=== PATIENT | female | born 1990 | race Caucasian/White ===

== ENCOUNTER 2016-08-02 16:11 | Outpatient (CLI) | payer OTHER ==
[~2016-08-02 16:11] MED LIST: ACID REDUCER M150 MG PO; IBUPROFEN200 M1 PO; IRON SUPPLEMEN325 MG; OXYCODONE/ACETA1 TA1 PO; PRENATAL1 TAB PO; TYLENOL325 MG PO; VENTOLIN HFA IN
[2016-08-17] MEDS ORDERED: METFORMIN HCL500 MG PO (17:51)
== END 2016-08-02 16:55 | disposition home or self-care (01) ==
LOC: NST SRH 16:11 → OB SRH 16:13 → NST SRH 16:55
PROC: 4A0HXCZ Measurement of Products of Conception, Cardiac Rate, External Approach (ICD-10-PCS; principal; 2016-08-02)
DX: O24.419 Gestational diabetes mellitus in pregnancy, unspecified control (principal); Z3A.37 37 weeks gestation of pregnancy

== ENCOUNTER 2016-08-04 14:57 | Outpatient (CLI) | payer OTHER ==
[2016-08-17] MEDS ORDERED: METFORMIN HCL500 MG PO (17:51)
== END 2016-08-04 15:40 | disposition home or self-care (01) ==
LOC: NST SRH 14:57 → OB SRH 14:59 → NST SRH 15:40
PROC: 4A0HXCZ Measurement of Products of Conception, Cardiac Rate, External Approach (ICD-10-PCS; principal; 2016-08-04)
DX: O24.419 Gestational diabetes mellitus in pregnancy, unspecified control (principal); Z3A.36 36 weeks gestation of pregnancy

== ENCOUNTER 2016-08-08 14:59 | Outpatient (CLI) | payer OTHER ==
[2016-08-17] MEDS ORDERED: METFORMIN HCL500 MG PO (17:51)
== END 2016-08-08 16:00 | disposition home or self-care (01) ==
LOC: NST SRH 14:59 → OB SRH 15:00 → NST SRH 16:00
PROC: 4A0HXCZ Measurement of Products of Conception, Cardiac Rate, External Approach (ICD-10-PCS; principal; 2016-08-08)
DX: O24.419 Gestational diabetes mellitus in pregnancy, unspecified control (principal); Z3A.37 37 weeks gestation of pregnancy

== ENCOUNTER 2016-08-09 14:49 | Outpatient (CLI) | payer OTHER ==
--- NOTE | 2016-08-09 16:02 | DIAGNOSTIC IMAGING REPORT ---
PROCEDURE: US OB LIMITED INDICATION: JENN CK,GEST DIABETIC TECHNIQUE: Transabdominal ragsdale scale and color Doppler imaging was obtained of the gravid uterus. COMPARISON: OB ultrasound dated 04/12/2016 FINDINGS: Single live intrauterine is in vertex presentation. Regular heart rate at 124 beats per minute. Placenta is anterior and has a normal appearance without previa or abruption. The cervix is closed and measures 3.1 cm in length. Amniotic fluid measures at 13.9 cm which is at the 50th percentile. Stomach bladder and kidneys are normal. IMPRESSION: 1. Amniotic fluid index 13.9 cm which is at the 50th percentile.
[2016-08-17] MEDS ORDERED: METFORMIN HCL500 MG PO (17:51)
== END 2016-08-09 23:00 ==
LOC: US SRH 14:49
DX: O24.419 Gestational diabetes mellitus in pregnancy, unspecified control (principal)

== ENCOUNTER 2016-08-10 16:18 | Outpatient (CLI) | payer OTHER ==
[2016-08-17] MEDS ORDERED: METFORMIN HCL500 MG PO (17:51)
== END 2016-08-10 17:20 | disposition home or self-care (01) ==
LOC: NST SRH 16:18 → OB SRH 16:19 → NST SRH 17:20
PROC: 4A0HXCZ Measurement of Products of Conception, Cardiac Rate, External Approach (ICD-10-PCS; principal; 2016-08-10)
DX: O24.419 Gestational diabetes mellitus in pregnancy, unspecified control (principal); Z3A.37 37 weeks gestation of pregnancy

== ENCOUNTER 2016-08-15 15:02 | Outpatient (CLI) | payer OTHER ==
[2016-08-17] MEDS ORDERED: METFORMIN HCL500 MG PO (17:51)
== END 2016-08-15 15:36 | disposition home or self-care (01) ==
LOC: NST SRH 15:02 → OB SRH 15:03 → NST SRH 15:36
PROC: 4A0HXCZ Measurement of Products of Conception, Cardiac Rate, External Approach (ICD-10-PCS; principal; 2016-08-15)
DX: O24.419 Gestational diabetes mellitus in pregnancy, unspecified control (principal); Z3A.38 38 weeks gestation of pregnancy

== ENCOUNTER 2016-08-16 15:00 | Outpatient (CLI) | payer OTHER ==
--- NOTE | 2016-08-16 16:03 | DIAGNOSTIC IMAGING REPORT ---
PROCEDURE: US OB LIMITED INDICATION: JENN CK,GEST DIABETIC TECHNIQUE: Transabdominal ragsdale scale and color Doppler imaging was obtained of the third trimester gravid uterus. COMPARISON: 08/09/2016 FINDINGS: Single live intrauterine is in vertex presentation. Regular heart rate at 138 beats per minute. Placenta is anterior and has a normal appearance without previa or abruption. The cervix is closed and measures 3.8 cm in length. Amniotic fluid index is 9.6 cm, within normal limits. IMPRESSION: 1. Single living intrauterine . 2. Amniotic fluid index within normal limits.
[2016-08-17] MEDS ORDERED: METFORMIN HCL500 MG PO (17:51)
== END 2016-08-16 23:00 ==
LOC: US SRH 15:00
DX: O24.419 Gestational diabetes mellitus in pregnancy, unspecified control (principal); Z3A.36 36 weeks gestation of pregnancy

== ENCOUNTER 2016-08-18 15:15 | Outpatient (CLI) | payer OTHER ==
[~2016-08-18 15:15] MED LIST changes: +METFORMIN HCL500 MG PO
== END 2016-08-18 15:55 | disposition home or self-care (01) ==
LOC: NST SRH 15:15 → OB SRH 15:17 → NST SRH 15:55
PROC: 4A0HXCZ Measurement of Products of Conception, Cardiac Rate, External Approach (ICD-10-PCS; principal; 2016-08-18)
DX: O24.419 Gestational diabetes mellitus in pregnancy, unspecified control (principal); Z3A.38 38 weeks gestation of pregnancy

== ENCOUNTER 2016-08-22 06:02 | Inpatient (IN) | payer OTHER ==
[~2016-08-22] VITALS: Ht 152.4 cm; Wt 78.9 kg
[2016-08-22] VITALS (10 sets, daily range): BP systolic 91–108; BP diastolic 53–67
--- NOTE | 2016-08-22 09:17 | OPERATIVE REPORT ---
DATE OF SURGERY: 08/22/2016 SURGEON: Raul Escalera MD PREOPERATIVE DIAGNOSIS: 1. Intrauterine at 39 weeks gestation, previous 2 C-sections, desired permanent sterilization and scar POSTOPERATIVE DIAGNOSES: 1. Intrauterine at 39 weeks gestation, previous 2 C-sections, desired permanent sterilization and scar, viable PROCEDURE: 1. Bilateral tubal ligation, low transverse section and scar revision. DESCRIPTION OF PROCEDURE: The patient was prepped and draped in the usual sterile fashion after all consents were obtained including her tubal ligation, which she and her are both certain they want no more children. She was prepped and draped in the usual sterile fashion after she was found to have adequate anesthesia with spinal. An incision was made over her previous scar and the scar was removed then scar tissue was taken down to the fascial layer which was nicked and then bilaterally extended with Manuel scissors. Then, she had the superior aspect of the incision grasped with Arturo clamps, which was brought down through significant scar tissue with Manuel scissors and then a similar procedure on the lower aspect of the fascia. The peritoneum was entered bluntly. The superior aspect of the incision and then a bladder blade was inserted. A small michael was made in the vesicouterine peritoneum and then extended with Metzenbaums bilaterally. The bladder flap was made and the bladder blade was reinserted over this. An incision was made across the lower uterine segment and taken down to the amniotic sac, which was nicked and then clear fluid observed. The baby was delivered atraumatically to the maternal abdomen, had good cry. Cord was clamped and cut and the baby transferred to the warmer and did well. The placenta was delivered with light traction after cord blood was obtained and then the uterus was cleared of clots and debris with a dry lap. The bladder blade was reinserted. Penningtons were attached to the lower aspect of the incision and at the angles on the uterus. This was closed with 0 Polysorb in a running locked fashion that there was a small area of adhesions that was nicked on the uterus that had a little bit of oozing. This was cauterized. There was no significant bleeding across her incision line, so the tubes were then clipped with Filshie clips at a region that had no significant vascularity. This was done bilaterally. After confirming with the patient she really wanted her tubes tied, and she was certain, irrigation was done and then the uterus was inserted back into the abdomen with some more irrigation. The uterine incision was observed and there was no significant bleeding at either the angles or across the incision line. The fascial layer was closed with 1 Polysorb and then a 0 Polysorb was used to reapproximate her wound with 3 stitches and then large nathan were used on the skin. Both mom and baby were doing well after the procedure.
[2016-08-23 05:15] VITALS: BP 94/50
--- NOTE | 2016-08-23 07:00 | Progress Note ---
Subjective General POD #1 , repeat. Feeling OK. Ambulating and tolerating po and voiding. Pain moderate and well controlled. Denies nausea or vomiting. Tolerating PO intake. Physical Exam Vital Signs / I&Os Vital Signs Date Time Temp Pulse Resp B/P Pulse O2 O2 Flow FiO2 Ox Delivery Rate 08/23 05 98.1 78 16 94/50 04/04 2345 97.5 81 16 99/57 04/04 2100 98.8 89 18 91/55 04/04 1700 98.2 87 18 97/53 04/04 1600 Room Air 08/22 1230 93 18 103/56 04/04 1130 76 18 99/54 04/04 1100 77 18 108/67 04/04 1025 77 18 108/66 04/04 1010 76 18 108/66 04/04 0955 77 18 106/61 04/04 0940 97.7 77 18 107/58 04/ 0926 98.8 76 12 108/60 100 04/04 0920 73 12 108/63 100 04/04 0912 78 12 100/65 99 04/04 0904 75 12 101/61 100 04/04 0856 77 13 102/53 100 04/04 0851 97.5 88 12 98/51 100 I&O /04 0800 04/04 1600 05 0000 Intake Total 1000 2800 1418 Output Total 2350 0 Balance 9283 506 0357 General Appearance Alert, Oriented X3, Cooperative, No acute distress Lungs Clear to auscultation Cardiovascular Regular rate and rhythm Abdomen Normal bowel sounds, Soft, No tenderness, Fundus firm. Wound clean and dry. Extremities No edema Skin No Rashes LAB Results Laboratory Tests 08/23 0505 Hematology WBC (4.5 - 11.5 K/uL) 8.8 RBC (4.00 - 5.20 M/uL) 3.42 Hgb (12.0 - 16.0 gm/dL) 9.5 Hct (36.0 - 46.0 %) 28.2 MCV (80 - 100 fL) 82 MCH (26 - 34 pg) 28 RDW (11.6 - 14.8 %) 13.4 Neut % (Auto) (50 - 75 %) 64.9 Lymph % (Auto) (25 - 40 %) 25.7 [place] % (Auto) (3 - 14 %) 8.4 Eos % (Auto) (0 - 4 %) 0.8 Baso % (Auto) (0 - 2 %) 0.2 Plt Count, EDTA (150 - 400 K/uL) 199 PUBS MCHC (31 - 37 g/dL) 34 Assessment and Plan Problem List 1. delivery w/o mention of indication, deliv, curr hospitaliz Plan Continue routine post op care.
[2016-08-23 09:06] VITALS: BP 93/50
[2016-08-23 16:45] VITALS: BP 111/66
[2016-08-23 21:00] VITALS: BP 112/58
[2016-08-24 00:10] VITALS: BP 108/54
[2016-08-24 04:20] VITALS: BP 114/60
[2016-08-24] MEDS ORDERED: IBUPROFEN200 M1 PO (07:26)
[2016-08-24] MEDS ORDERED: OXYCODONE/ACETA1 TA1 PO (07:27)
--- NOTE | 2016-08-24 07:31 | Provider's Discharge Care Plan ---
Problem, Goal, Plan Problem List 1. delivery w/o mention of indication, olesya hartmaniz Goals: Improved health/wellness Instructions: Take meds as directed, Gradually increase activity 2. Gestational diabetes Goals: Improve disease control Instructions: Stop metformin. Will monitor to assess if resolved
--- NOTE | 2016-08-24 08:09 | DISCHARGE SUMMARY ---
ADMIT DATE: 08/22/2016 DISCHARGE DATE: 08/24/2016 ADMITTING DIAGNOSES: 1. Term intrauterine 2. Repeat section 3. Gestational diabetes DISCHARGE DIAGNOSES: 1. Term intrauterine 2. Repeat section 3. Gestational diabetes PROCEDURE: 1. section, delivered BRIEF HISTORY: complicated by gestational diabetes and history of prior section, without other complication, presented at term for repeat section. HOSPITAL COURSE: The patient was taken to the operating theater and section performed without complication. See also operative summary. course was uncomplicated. Metformin was discontinued, and the patient remained stable. By the day of discharge, the patient was tolerating oral intake, ambulating, voiding without difficulty, passing gas, and pain was controlled with oral medications. She was her baby successfully and showing ability for self-care and care for baby. DISCHARGE INSTRUCTIONS/MEDICATIONS: Disposition: Home. Discharge medications: Ibuprofen 200 mg 2 p.o. q.4 hours p.r.n. pain. Oxycodone/acetaminophen 5/325 mg 2 p.o. q.4 hours p.r.n. pain. vitamin 1 p.o. daily. Acetaminophen 325 mg p.o. q.4 hours p.r.n. mild pain. The patient was instructed to discontinue metformin, and also albuterol, which had been on her list, was discontinued, as she has not been using that. Followup instructions: Follow up with Dr. Escalera in 4-5 days for staple removal and to arrange testing to monitor blood sugars. Routine care discussed, including pelvic rest and gradually increasing activity, as well as .
[2016-08-24 10:36] VITALS: BP 116/82
== END 2016-08-24 13:55 | disposition home or self-care (01) | DRG 540 ==
LOC: OB SRH 06:02 → U SRH 07:30 → OB SRH 08-24 13:55
PROVIDERS: ADMIT Family Medicine
PROC: 10D00Z1 Extraction of Products of Conception, Low, Open Approach (ICD-10-PCS; principal; 2016-08-22 07:30)
PROC: 0UL70CZ Occlusion of Bilateral Fallopian Tubes with Extraluminal Device, Open Approach (ICD-10-PCS; principal; 2016-08-22 07:30)
DX: O34.211 Maternal care for low transverse scar from previous cesarean delivery (principal); Z37.0 Single live birth; Z3A.39 39 weeks gestation of pregnancy; Z30.2 Encounter for sterilization; O24.425 Gestational diabetes mellitus in childbirth, controlled by oral hypoglycemic drugs; J45.909 Unspecified asthma, uncomplicated; Z87.74 Personal history of (corrected) congenital malformations of heart and circulatory system
CPT/HCPCS: 40010; 50002; 60001; 82885; 83411; 83426; 83526; 84038; 87025; 90001; 90074; 90155; 91004; 95059